=== PATIENT | female | born 1970 | race Caucasian/White ===

== ENCOUNTER 2021-10-11 20:26 | Emergency (ER) | payer SELFPAY ==
[~2021-10-11] VITALS: Ht 152.4 cm; Wt 90.7 kg
[2021-10-11 20:30] VITALS: BP 151/81
--- NOTE | 2021-10-11 20:30 | NUR ---
TO BED AMBULATORY
[2021-10-11] MEDS ORDERED: KETOROLAC 60 MG/2 ML VIAL IM ONE (20:55)
--- NOTE | 2021-10-11 21:00 | NUR ---
SEE COMEPLETE ASSESSMENT.
[2021-10-11] MEDS ORDERED: ACET-8386 PO (21:58)
[2021-10-11] MEDS ORDERED: IBUP-2213 PO (21:58)
[2021-10-11 22:05] VITALS: BP 148/88
--- NOTE | 2021-10-11 22:05 | NUR ---
Patient discharged with v/s stable. Written and verbal after care instructions given and explained. Patient alert, oriented and verbalized understanding of instructions. Ambulatory with steady gait. All questions addressed prior to discharge. ID band removed. Patient advised to follow up with PMD. Rx of HYDROCODONE/ACETAMINOPHEN, IBUPROFEN given. Patient educated on indication of medication including possible reaction and side effects. Opportunity to ask questions provided and answered.
== END 2021-10-11 22:05 | disposition home or self-care (01) ==
LOC: MED 20:26
DX: M54.59 Other low back pain (principal); E11.9 Type 2 diabetes mellitus without complications; I10 Essential (primary) hypertension
CPT/HCPCS: 81002; 81025; 96372; 99283; J1885